=== PATIENT | female | born 1950 | race Two or more races ===

== ENCOUNTER → 2017-05-07 | Outpatient (CLI) | payer OTHER ==
--- NOTE | 2017-05-07 10:06 | RADRPT ---
PROCEDURE: LEFT KNEE X-RAY CLINICAL INDICATION: PSIN TECHNIQUE: 4 views of the knee were obtained. COMPARISON: None FINDINGS: No acute fracture or dislocation is seen. There is normal mineralization. There is mild narrowing of the medial compartment. Mild spurring is noted at the superior pole of the patella. There is no joint effusion. There is no significant soft tissue swelling. IMPRESSION: Mild degenerative changes of the left knee, as above. RPTAT: EE Physician George Date Time Electronically viewed and signed by Physician George on 05/07/2017 10:06 RA/
== END | disposition home or self-care (01) ==
LOC: HKI 13:10
PROVIDERS: ATTEND Orthopaedic Surgery
DX: M17.12 Unilateral primary osteoarthritis, left knee (principal); I10 Essential (primary) hypertension; E78.00 Pure hypercholesterolemia, unspecified; E03.9 Hypothyroidism, unspecified
CPT/HCPCS: 73564; Z7500; G0463